=== PATIENT | male | born 1985 | race Caucasian/White ===

== ENCOUNTER 2017-06-30 20:04 | Emergency (ER) | payer SELFPAY ==
[~2017-06-30] VITALS: Ht 177.8 cm; Wt 107.6 kg
[~2017-06-30 20:04] MED LIST: SULF1TAB12 PO
[2017-06-30 20:17] VITALS: BP 114/71
[2017-06-30] MEDS ORDERED: KETOROLAC 30 MG/ML VIAL IM ONE (22:30)
[2017-06-30] MEDS ORDERED: TAMSULOSIN 0.4 MG CAP PO STA (22:36)
[2017-07-01 00:48] VITALS: BP 128/76
[2017-07-01] MEDS ORDERED: TAMSULOSIN 0.4 MG CAP PO SCH (08:30)
== END 2017-07-01 00:45 | disposition home or self-care (01) ==
LOC: MED 20:04
DX: N20.0 Calculus of kidney (principal); Z79.899 Other long term (current) drug therapy
CPT/HCPCS: 74176; 81002; 96372; 99284; J1885

== ENCOUNTER 2018-11-01 18:07 | Emergency (ER) | payer MEDICAID ==
[~2018-11-01] VITALS: Ht 177.8 cm; Wt 108.9 kg
[2018-11-01 18:26] VITALS: BP 142/76
--- NOTE | 2018-11-01 18:29 | NUR ---
VSS. WAIT IN LOBBY.
--- NOTE | 2018-11-01 19:08 | NUR ---
pt. ambulated to bed 3
--- NOTE | 2018-11-01 19:24 | NUR ---
C/O THROAT PAIN X YESTERDAY. MED HX:DENIES
--- NOTE | 2018-11-01 19:25 | NUR ---
Dr. Morgan examining patient.
[2018-11-01 21:24] VITALS: BP 138/82
--- NOTE | 2018-11-01 21:24 | NUR ---
Patient discharged with v/s stable. Written and verbal after care instructions given and explained. Patient alert, oriented and verbalized understanding of instructions. Ambulatory with steady gait. All questions addressed prior to discharge. ID band removed. Patient advised to follow up with PMD. Rx of MOTRIN 800MG AND LIDOCAINE HYDROCHLORIDE 2% given. Patient educated on indication of medication including possible reaction and side effects. Opportunity to ask questions provided and answered.
== END 2018-11-01 21:24 | disposition home or self-care (01) ==
LOC: MED 18:07
DX: J02.9 Acute pharyngitis, unspecified (principal); Z79.899 Other long term (current) drug therapy
CPT/HCPCS: 87081; 99283